=== PATIENT | female | born 1985 | race Hispanic/Latino ===

== ENCOUNTER 2021-09-16 18:48 | Observation (INO) | payer BC ==
[2021-09-16 19:59] VITALS: BMI 26.8
[2021-09-16] MEDS ORDERED: Ondansetron ODT 4 MG TAB PO PRN (20:12)
[2021-09-16] MEDS ORDERED: Morphine 4 MG/ML VIAL SLOW IVP PRN (20:12)
[2021-09-16] MEDS ORDERED: Ondansetron PF 4 MG/2 ML Vial IVP PRN (20:12)
[2021-09-16] MEDS: Enoxaparin Sodium 40 MG/0.4 ML SYRINGE SC SCH (21:37)
[2021-09-16] MEDS: Potassium Chloride 20 MEQ in Lactated Ringer's 1,000 ML IV SCH (21:38)
[2021-09-17 00:44] LABS: SARS-CoV-2 NAA Rapid Test Not Detected (NotDetected)
[2021-09-17 04:49] LABS: #Eosinphils 0.2 10x3/uL (0.0-0.5); #Monocytes 0.6 10x3/uL (0.0-1.1); #Neutrophils 5.7 10x3/uL (1.5-8.4); %Basophils 0.4 % (0.0-2.0); %Eosinophils 1.6 % (0.0-6.0); %Lymphocytes 28.1 % (18.0-47.0); %Monocytes 6.9 % (0.0-10.0); %Neutrophils 62.7 % (40.0-75.0); ALT (SGPT) 15 U/L (8-55); AST (SGOT) 15 U/L (5-34); Albumin 3.5 g/dL (3.5-5.0); Alkaline Phosphatase 59 U/L (40-110); Anion Gap 13 mmol/L (10-20); BUN (Urea Nitrogen) 6 mg/dL (7.0-18.7); Bilirubin, Total 0.5 mg/dL (0.2-1.2); Calc. Creatinine Clearance 142 mL/min (70-130); Calcium 8.8 mg/dL (7.8-10.44); Carbon Dioxide 24 mmol/L (22-29); Chloride 106 mmol/L (98-107); Glucose 95 mg/dL (70-105); Magnesium 2.1 mg/dL (1.6-2.6); Mean Corpuscular HGB CONC 31.5 g/dL (32.0-36.0); Mean Corpuscular Hemoglobin 22.8 pg (27.0-33.0); Mean Corpuscular Volume 72.2 fl (81.6-98.3); Mean Platelet Volume 12.5 fl (7.4-10.4); Platelet Count 252 10x3/uL (150-450); Potassium 4.1 mmol/L (3.5-5.1); Protein, Total 6.5 g/dL (6.0-8.3); RBC Distribution Width 13.4 % (11.5-14.5); Red Blood Cell (RBC) Count 4.39 10x6/uL (3.90-5.03); Sodium 139 mmol/L (136-145); White Blood Cell (WBC) Count 9.2 10x3/uL (3.5-10.5)
[2021-09-17] MEDS: Potassium Chloride 20 MEQ in Lactated Ringer's 1,000 ML IV SCH ×3 (06:25→21:56)
[2021-09-17] MEDS: Acetaminophen 325 MG TAB PO PRN (13:17)
[2021-09-17] MEDS: Enoxaparin Sodium 40 MG/0.4 ML SYRINGE SC SCH (20:51)
[2021-09-18] MEDS: Potassium Chloride 20 MEQ in Lactated Ringer's 1,000 ML IV SCH ×2 (05:42→14:00)
[2021-09-18] MEDS: Acetaminophen 325 MG TAB PO PRN (10:52)
[2021-09-18 11:54] VITALS: BP 113/68; TEMP 98.3
[2021-09-18] MEDS ORDERED: EPINEPHrine 1 MG/ML AMP ONE (13:53)
[2021-09-18] MEDS ORDERED: Iopamidol 15 ML ONE ×2 (13:54→15:28)
[2021-09-18] MEDS ORDERED: Bupivacaine PF 0.5% 30 ML VIAL ONE (13:54)
[2021-09-18] MEDS ORDERED: Rocuronium Bromide 10 MG/ML (10ML VIAL) ONE (14:26)
[2021-09-18] MEDS ORDERED: Ondansetron PF 4 MG/2 ML Vial ONE (14:26)
[2021-09-18] MEDS ORDERED: PROPOFOL 20 ML ONE (14:26)
[2021-09-18] MEDS ORDERED: Fentanyl 100 MCG/2 ML VIAL ONE ×2 (14:26→15:50)
[2021-09-18] MEDS ORDERED: Lidocaine 1% PF 5 ML VIAL ONE (14:26)
[2021-09-18] MEDS ORDERED: diphenhydrAMINE 50 MG/ML VIAL ONE (14:27)
[2021-09-18] MEDS ORDERED: SUGAMMADEX SODIUM 200 MG/2 ML VIAL ONE (14:29)
[2021-09-18] MEDS ORDERED: ceFAZolin 2 GM/Dextrose 50 ML IVPB ONE (14:33)
[2021-09-18] MEDS ORDERED: Ketorolac Tromethamine 30 MG/ML VIAL ONE (14:43)
[2021-09-18] MEDS ORDERED: PHENYLEPHRINE-NS 100 MCG/ML 10 ML SYRINGE ONE (14:54)
[2021-09-18] MEDS ORDERED: HYDROcodone/Acetaminophen 5/325 mg Tablet PO PRN ×2 (17:29)
== END 2021-09-18 20:01 | disposition home or self-care (01) ==
LOC: INTOOBSV 18:48 → CSHTELE 18:48
PROVIDERS: ADMIT Internal Medicine; ATTEND Internal Medicine
PROC: 0FT44ZZ Resection of Gallbladder, Percutaneous Endoscopic Approach (ICD-10-PCS; principal; 2021-09-18)
PROC: BF101ZZ Fluoroscopy of Bile Ducts using Low Osmolar Contrast (ICD-10-PCS; 2021-09-18)
DX: K80.64 Calculus of gallbladder and bile duct with chronic cholecystitis without obstruction (principal); K83.8 Other specified diseases of biliary tract; E11.9 Type 2 diabetes mellitus without complications; Z79.84 Long term (current) use of oral hypoglycemic drugs; Z20.822 Contact with and (suspected) exposure to COVID-19
CPT/HCPCS: 36415; 36416; 47532; 80053; 83735; 85025; 88304; 96372; C1713; G0378; J0171; J0690; J1200; J1650; J1885; J2405; J2704; J3010; J3480; J7120; Q9967; S0020; U0002